=== PATIENT | female | born 1990 | race Hispanic/Latino ===

== ENCOUNTER 2024-08-01 09:03 | Emergency (ER) | payer OTHER ==
[~2024-08-01] VITALS: Ht 167.6 cm; Wt 72.2 kg
[2024-08-01 13:15] LABS: BASOPHILS 0.6 % (0-2); EOSINOPHILS 1.7 % (0-6); HEMATOCRIT 33.8 % (35.0-50.0); LYMPHOCYTES 23.3 % (24-44); MCH 30.4 (27-36); MCHC 35.6 g/dl (30-36); MCV 85.4 fl (81-99); MONOCYTES 14.3 % (0-12); NEUTROPHILS 60.1 % (39-80); PLATELET COUNT 304 K/uL (140-440); RBC 3.96 M/ul (4.3-5.7); RDW 13.9 (10.5-15.0)
[2024-08-01 14:08] VITALS: BP 113/67
== END 2024-08-01 14:09 | disposition home or self-care (01) ==
LOC: ED 09:03
PROVIDERS: Emergency Medicine
DX: N93.8 Other specified abnormal uterine and vaginal bleeding (principal)
CPT/HCPCS: 36415; 84703; 85025; 99284

== ENCOUNTER 2025-01-11 05:46 | Day surgery (SDC) | payer OTHER ==
[~2025-01-11] VITALS: Ht 157.5 cm; Wt 73.0 kg
[~2025-01-11 05:46] MED LIST: IRON236 MG PO; LACTATED RINGER'S 1,000 ML IV SCH; VITAMIN C500 M1 PO
[2025-01-11 06:05] VITALS: BP 101/66
[2025-01-11] MEDS ORDERED: LIDOCAINE HCL 2% 5 ML SDV ONE (06:56)
[2025-01-11] MEDS ORDERED: fentaNYL citrate 100 MCG/2 ML VIAL ONE (06:56)
[2025-01-11] MEDS ORDERED: MIDAZOLAM HCL 2 MG/2 ML VIAL ONE (06:56)
[2025-01-11] MEDS ORDERED: IBLOOD GLUCOSE TEST STRIP 1 EA TEST VI PRN (07:00)
[2025-01-11] MEDS ORDERED: LIDOCAINE HCL 1% 5 ML SDV INJ ONE (07:00)
[2025-01-11] MEDS ORDERED: KETOROLAC TROMETHAMINE 30 MG/ML VIAL ONE (08:02)
--- NOTE | 2025-01-11 08:16 | NUR ---
01/11/25 0816 Jelena Merrill 0808- PT PRESENTS TO PACU, SEMI MCKENZIE POSITION, AWAKE BUT DROWSY. DENIES PAIN OR NAUSEA. LR INFUSING TO LAC. ABD SOFT, NON DISTENDED. ELOISE PAD IN PLACE, NO BLEEDING AT THIS TIME.
[2025-01-11 08:54] VITALS: BP 103/74
--- NOTE | 2025-01-11 11:52 | OR ---
[address] [address] Signed DATE OF OPERATION: 01/11/2025 SURGEON: Matilde Norris MD PREOPERATIVE DIAGNOSES: 1. Menometrorrhagia. 2. Abnormal uterine bleeding. 3. Cervical polyp. 4. Desires removal of intrauterine device. POSTOPERATIVE DIAGNOSES: 1. Menometrorrhagia. 2. Abnormal uterine bleeding. 3. Cervical polyp. 4. Desires removal of intrauterine device. PROCEDURES: Exam under anesthesia, removal of ParaGard intrauterine device, cervical polypectomy, diagnostic hysteroscopy, dilatation and curettage. FINDINGS: Normal size uterus approximately 10 week size. A large cervical polyp which had begun to inject itself through the cervical canal present at the cervical os. Thickened endometrium but no more cervical or uterine cavity polyps noted. ANESTHESIA: MAC plus local. SHEET METAL FABRICATOR: None. IV FLUIDS: 700 mL crystalloid. ESTIMATED BLOOD LOSS: 15 mL. URINE OUTPUT: 40 mL clear urine. Electronically Signed By: MATILDE NORRIS MD 01/11/25 1152 PATIENT NAME: JATINDER FANG OPERATIVE REPORT DATE OF : 86 REPORT #: [id number] PHYSICIAN: MATILDE NORRIS MD PCP: NO PRIMARY CARE PHYSICIAN REPORT IS CONFIDENTIAL AND NOT TO BE RELEASED WITHOUT AUTHORIZATION [address] [address] Signed HYSTEROSCOPY FLUID DEFICIT: 60 mL. DRAINS: None. SPECIMENS: 1. Cervical polyp. 2. Endometrial curettings. COUNTS: Correct x2. COMPLICATIONS: None apparent. TECHNIQUE IN DETAIL: With informed consent, the patient was taken to the operating room. Lower extremities were placed in SCD pneumatic compression devices for DVT prophylaxis. No antibiotics were indicated. She was given IV sedation and then her lower extremities were placed in mid lithotomy position using Yellofin stirrups. She underwent a brief exam under anesthesia and she was then prepped and draped in sterile fashion. Time-out was performed per protocol. A speculum was placed and the cervix was visualized. At this point, we solved the cervical polyp at the internal os, which we had not seen before. Also noted were the IUD strings. Using ring forceps the IUD strings were grasped and the IUD was removed without difficulty. With the polyp presenting itself at the cervical os and the cervix dilated as a result, we were able to place ring forceps over the body of the cervix and using a rotational maneuver. The cervical polyp was enucleated. The hysteroscope was then inserted into the cervical canal and uterine cavity and we were able to visualize the cervical canal and uterine cavity with ease. Endometrium was noted to be thick in the uterine cavity, but no further polyps were noted. We did note the tubal ostia on both the left and the right. At this point, the hysteroscope was removed and gentle curettage was performed of the uterine cavity and the cervical canal to remove the excess tissue. We also endeavor to obtain this tissue for histopathologic analysis. Once this had been completed, the procedure was deemed to be complete and all instruments were removed. We had placed a single-tooth tenaculum on the anterior lip of the cervix at the beginning of the case in order to straighten out the uterus and there was some area of oozing from one of the puncture sites of the tenaculum. This was rendered hemostatic with application of pressure using a sponge stick. We then removed the sponge stick and speculum and patient underwent I and O catheterization of her Electronically Signed By: MATILDE NORRIS MD 01/11/25 1152 PATIENT NAME: JATINDER FANG OPERATIVE REPORT DATE OF : [birth year] REPORT #: [id number] PHYSICIAN: MATILDE NORRIS MD PCP: NO PRIMARY CARE PHYSICIAN REPORT IS CONFIDENTIAL AND NOT TO BE RELEASED WITHOUT AUTHORIZATION [address] [place], [place] [address] Signed bladder for the above-mentioned amount. DISPOSITION: The patient was taken to the recovery room in an excellent condition. MD JOSHUA Calderón/MODL /[id number] Copies: ~ Electronically Signed By: MATILDE NORRIS MD 01/11/25 1152 PATIENT NAME: JATINDER FANG OPERATIVE REPORT DATE OF : [birth year] REPORT #: [id number] PHYSICIAN: MATILDE NORRIS MD PCP: NO PRIMARY CARE PHYSICIAN REPORT IS CONFIDENTIAL AND NOT TO BE RELEASED WITHOUT AUTHORIZATION
--- NOTE | 2025-01-16 11:52 | PATH ---
[facility] [address] [place], [place] [address] Signed SPECIMEN(S): A ENDOMETRIAL POLYP SPECIMEN(S): B ENDOMETRIAL CURETTINGS SPECIMEN SOURCE: A. ENDOMETRIAL POLYP B. ENDOMETRIAL CURETTINGS CLINICAL HISTORY: Menometrorrhagia. FINAL PATHOLOGIC DIAGNOSIS: A. Endometrial polyp: - Benign endocervical/lower uterine segment polyp and bland myometrium. B. Endometrial curettage: - Benign proliferative endometrium, negative for hyperplasia or atypia. JVR MICROSCOPIC EXAMINATION: Histologic sections of all submitted blocks are examined by light microscopy. These findings, together with the gross examination, support the pathologic diagnosis. GROSS DESCRIPTION: A. The specimen, labeled and designated "Ariel Reynoso " and designated on the requisition "endometrial polyp," is received in formalin and consists of 5 g" oriented pale pink rubbery nodule that is 3.0 x 2.2 x 1.7 cm. The specimen is partially surfaced by pink focally congested possible mucosa. The specimen is serially sectioned revealing a pink-white homogeneous, and cystic cut surface. Test Engineer sections are submitted in (A1-A3). B. The specimen, labeled and designated "Ariel Reynoso " and designated on the requisition "[facility]," is received in formalin and consists of 9.5 x 2.6 x 0.6 cm aggregate of pink-red soft tissue. The specimen is entirely submitted in (B1-B4). FB (under the direct supervision of a pathologist) The Gross Description was prepared using a voice recognition system. The report was reviewed for accuracy; however, sound-alike word errors, addition and/or deletions may occur. If there is any question about this report, please contact Client Services. PATIENT NAME: JATINDER REYNOSO PATHOLOGY DATE OF : 86 REPORT #: [id number] PHYSICIAN: [facility] PCP: NO PRIMARY CARE PHYSICIAN REPORT IS CONFIDENTIAL AND NOT TO BE RELEASED WITHOUT AUTHORIZATION [facility] [address] [place], [place] [address] Signed ADDITIONAL NOTES: Immunohistochemical and/or in situ hybridization studies if performed in this case included appropriate positive controls that reacted as expected. This test was developed and its performance characteristics determined by [facility]. It has not been cleared or approved by the U.S. Food and Drug Administration. The FDA has determined that such clearance or approval is not necessary. This test is used for clinical purposes. It should not be regarded as investigational or for research. [facility] is certified under the Clinical Laboratory Improvement Amendments of 1988 (CLIA) as qualified to perform high complexity clinical laboratory testing. PERFORMING LABORATORY: Technical component was performed by [facility], [address] [place] [id number] (CLIA# [id number]). Professional interpretation was performed by [facility] [place] [facility] - [address] [place] [address] (CLIA#: [id number]). Diagnostician: Roldan Davis MD Pathologist Electronically Signed 01/16/2025 Copies: ~ PATIENT NAME: JATINDER REYNOSO PATHOLOGY DATE OF : 86 REPORT #: [id number] PHYSICIAN: [facility] PCP: NO PRIMARY CARE PHYSICIAN REPORT IS CONFIDENTIAL AND NOT TO BE RELEASED WITHOUT AUTHORIZATION
== END 2025-01-11 09:08 | disposition home or self-care (01) ==
LOC: DS 05:46
PROVIDERS: ATTEND Obstetrics & Gynecology
PROC: 0UPD7HZ Removal of Contraceptive Device from Uterus and Cervix, Via Natural or Artificial Opening (ICD-10-PCS; 2025-01-11)
PROC: 0UBC8ZX Excision of Cervix, Via Natural or Artificial Opening Endoscopic, Diagnostic (ICD-10-PCS; principal; 2025-01-11 07:30)
DX: N84.1 Polyp of cervix uteri (principal)
CPT/HCPCS: 00952; 88305; J1885; J2003; J2250; J2405; J2704; J3010; J7121